=== PATIENT | female | born 1945 | race Caucasian/White ===

== ENCOUNTER 2016-08-26 06:18 | Inpatient (IN) | payer MEDICARE, OTHER ==
[~2016-08-26] VITALS: Ht 188 cm; Wt 65.0 kg
[~2016-08-26 06:18] MED LIST: ATOR20TA42 PO; PAXI10TA PO; SYNT88TA PO
[2016-08-26 06:20] VITALS: BP 144/78; PULSE 84; RESP 16; TEMP 98.2; O2SAT 100
--- NOTE | 2016-08-26 06:30 | PD ---
HPI Chief Complaint: Injury Time Seen by Provider: 06:30 Travel History International Travel<30 days: No Contact w/Intl Traveler<30days: No Traveled to known affect area: No History of Present Illness HPI 70-year-old female fell midnight after tripping over her dog. She injured her right elbow and right leg. Also when she fell she hit the right side of her cheek. She was applying ice to the right elbow area but when the swelling continued and the pain worse and she decided come to the emergency room. Patient is not on any blood thinners. She takes prednisone daily for her rheumatoid arthritis. No history of loss of consciousness, vomiting or altered mental status. [facility] Past Medical History Narrative Medical List of her past medical, surgical, social and family history is reviewed from the nursing note. Autoimmune Disease: No Heart Rhythm Problems: Yes (HEART MURMUR) Cancer: No Cardiac Catheterization: No Cardiovascular Problems: Yes High Cholesterol: Yes Congestive Heart Failure: No Diabetes: No Diminished Hearing: No Endocrine: No Genitourinary: No Immune Disorder: No Musculoskeletal: No Neurologic: No Psychiatric: No Reproductive: No Respiratory: No Past Surgical History Coronary Artery Bypass Graft: No Gynecologic Surgery: Yes (HYSTERECTOMY 1983) Hysterectomy: Yes Social History Alcohol Use: Yes (3-4 GLASSES OF WINE DAILY) Tobacco Use: No (QUIT 2010) Substance Use: No Allergies-Medications (Allergen,Severity, Reaction): Coded Allergies: No Known Allergies (Unverified , 01/28/16) Comments No known drug allergies. Reported Meds & Prescriptions Reported Meds & Active Scripts Active Reported Spironolactone 100 Mg Tab 100 Mg PO DAILY Zorvolex (Diclofenac) 35 Mg Cap 75 Mg PO BID Paxil (Paroxetine HCl) 10 Mg Tab 10 Mg PO DAILY Synthroid (Levothyroxine Sodium) 88 Mcg Tab 88 Mcg PO DAILY Atorvastatin (Atorvastatin Calcium) 10 Mg Tab Unknown Dose PO HS Prednisone 1 Mg Tab Unknown Dose PO DAILY Narrative Medication List of her home medications reviewed from the nursing note. Review of Systems Except as stated in HPI: all other systems reviewed are Neg Physical Exam Narrative GENERAL: Awake, alert, moderate distress SKIN: Focused skin assessment warm/dry. Right elbow is swollen with 3 deep abrasions and skin tear. No active bleeding. Right leg has multiple deep abrasions on the anterior aspect of the knee as well as leg. HEAD: Atraumatic. Normocephalic. Right cheek/maxillary prominence is swollen with bruising. No crepitus. EYES: Pupils equal and round. No scleral icterus. No injection or drainage. ENT: No nasal bleeding or discharge. Mucous membranes pink and moist. Patient is able to open her mouth wide and close shut without any difficulty. Good teeth alignment. No intraoral injuries. NECK: Trachea midline. No JVD. CARDIOVASCULAR: Regular rate and rhythm. No murmur appreciated. RESPIRATORY: No accessory muscle use. Clear to auscultation. Breath sounds equal bilaterally. GASTROINTESTINAL: Abdomen soft, non-tender, nondistended. Hepatic and splenic margins not palpable. MUSCULOSKELETAL: Right elbow is significantly swollen with slightly decreased range of motion. No clubbing. No cyanosis. No edema. NEUROLOGICAL: Awake and alert. No obvious cranial nerve deficits. Motor grossly within normal limits. Normal speech. PSYCHIATRIC: Appropriate mood and affect; insight and judgment normal. Data Data Last Documented VS Vital Signs Date Time Temp Pulse Resp B/P Pulse Ox O2 Delivery O2 Flow Rate FiO2 08/26/16 07:45 18 Orders Elbow, Complete (4 Vws) (08/26/16 ) Acetamin-Hydrocod 325-5 Mg ([place] 5-325 (08/26/16 06:45) Splint Or Brace Apply/Monitor (08/26/16 07:46) Fiberglass Splint Elbow Adult (08/26/16 ) Sling Cradle Arm (08/26/16 ) Admit Order (Ed Use Only) (08/26/16 09:09) Consult Orthopedic (08/26/16 ) [facility] Medical Decision Making Medical Screen Exam Complete: Yes Emergency Medical Condition: Yes Medical Record Reviewed: Yes Differential Diagnosis Distal humerus fracture, proximal radius ulna fracture, hematoma, contusion Narrative Course 6:56 AM awaiting for the x-ray to be done and resulted. Patient was given hydrocodone for her pain. Her last tetanus shot was in 2015. Case will be signed over to the oncoming ER physician. Procedures EKG Prior to Arrival: No Scripts Hydrocodone-Acetaminophen ([place])7.5-325 mg Tab1 Tab PO Q4H PRN (PAIN) #60 TAB Ref 0 Prov:Jarett Jensen 08/27/16 Alexandra Chan MD Aug 26, 2016 06:30
[2016-08-26] MEDS ORDERED: ATOR10TA15 PO (06:35)
[2016-08-26] MEDS ORDERED: PRED1 PO (06:35)
[2016-08-26] MEDS ORDERED: PAXI10TA2 PO (06:42)
[2016-08-26] MEDS ORDERED: SYNT88TA PO (06:42)
[2016-08-26] MEDS ORDERED: ACETAMINOPHEN/HYDROcodone 325 MG/5 MG TAB PO ONE (06:45)
[2016-08-26] MEDS ORDERED: ACET-703 PO (06:45)
[2016-08-26] MEDS ORDERED: DICL1CAP4 PO (06:45)
[2016-08-26] MEDS ORDERED: SPIR100T PO (06:46)
--- NOTE | 2016-08-26 07:12 | RADRPT ---
EXAM DATE/TIME: 08/26/2016 07:02 [facility] COMPARISON: No previous studies available for comparison. INDICATIONS : Trauma. Pt fell over a dog gate at her house in the middle of the night. MEDICAL HISTORY : None. SURGICAL HISTORY : None. ENCOUNTER: Initial ACUITY: 1 day PAIN SCORE: 3/10 LOCATION: Right elbow FINDINGS: 5 views of the right elbow demonstrate a fracture through the olecranon with approximately 18 mm of d isplacement of the proximal olecranon fragment. There is adjacent soft tissue swelling and a joint ef fusion is present. Proximal radius and distal humerus appear intact. No dislocation is visualized. CONCLUSION: There is a displaced fracture of the olecranon with associated soft tissue swelling and joint effusio n. Hemanth Rushing MD on August 26, 2016 at 7:09 Board Certified Radiologist. This report was verified electronically.
--- NOTE | 2016-08-26 09:15 | PD ---
Data Data Last Documented VS Vital Signs Date Time Temp Pulse Resp B/P Pulse Ox O2 Delivery O2 Flow Rate FiO2 08/26/16 06:20 98.2 84 16 144/78 100 Orders Elbow, Complete (4 Vws) (08/26/16 ) Acetamin-Hydrocod 325-5 Mg ([place] 5-325 (08/26/16 06:45) Splint Or Brace Apply/Monitor (08/26/16 07:46) Fiberglass Splint Elbow Adult (08/26/16 ) Sling Cradle Arm (08/26/16 ) Admit Order (Ed Use Only) (08/26/16 09:09) Consult Orthopedic (08/26/16 ) MDM Supervised Visit with MONICA: No Narrative Course I took over care of this patient from Dr. Chan. The patient had a mechanical fall overnight. She has evidence of a displaced olecranon fracture on x-ray. She does have some abrasions on the surface of the elbow but nothing deep and there is no evidence of open fracture. I spoke to Dr. Rizvi who will likely do surgery tomorrow and set the patient can eat today. She will be admitted to the medicine service at his request. Diagnosis Primary Impression: Closed olecranon fracture Qualified Code: S52.021A - Closed olecranon fracture, right, initial encounter Admitting Information Admitting Physician Requests: it Jenifer Gomez MD Aug 26, 2016 09:15
--- NOTE | 2016-08-26 09:22 | HHI.HP ---
[facility] Service Family Medicine Primary Care Physician Non-Staff Admission Diagnosis olecranon fracture Diagnoses: International Travel<30 Days: No Contact w/Intl Traveler<30days: No Known Affected Area: No History of Present Illness This is a 70-year-old female with past medical history significant for rheumatoid arthritis, dyslipidemia, and hypothyroidism. She is presenting to the [facility] for a fall that occurred last night. She woke up to go use the restroom during the night, and she had recently moved the family's dog cage into the bedroom and she forgot, she tripped over the dog cage and fell to the floor. She landed on her right elbow right cheek and legs. After the fall she had pain to the elbow and some scrapes on her legs. She denied losing consciousness, she denied feeling dizzy or lightheaded before or after the fall. This morning when the pain in her elbow continued to be severe she came to the ED for further evaluation. She was found to have a displaced fracture of the olecranon of the right elbow. Time of evaluation she is no longer hurting other than the elbow was sore, but pain was tolerable. Review of Systems Constitutional: DENIES: Fatigue, Fever, Weight gain, Chills, Change in appetite Endocrine: DENIES: Polydipsia, Polyuria Eyes: DENIES: Blurred vision, Eye pain, Double Vision Ears, nose, mouth, throat: DENIES: Tinnitus, Hearing loss, Vertigo, Hoarseness , Running Nose, Sinus Pain Respiratory: DENIES: Apneas, Cough, Wheezing, Sputum production, Shortness of breath Cardiovascular: DENIES: Chest pain, Dyspnea on Exertion, Lower Extremity Edema Gastrointestinal: DENIES: Abdominal pain, Black stools, Constipation, Diarrhea , Nausea, Vomiting Genitourinary: DENIES: Urgency, Hematuria, Dysuria Musculoskeletal: COMPLAINS OF: Joint pain (right elbow), Joint Swelling (right elbow), DENIES: Muscle aches, Stiffness, Back pain, Neck pain Integumentary: DENIES: Abnormal pigmentation, Rash Hematologic/lymphatic: COMPLAINS OF: Bruising (bruising to both lower extremities with some abrasions) Neurologic: DENIES: Abnormal gait, Headache, Seizures, Speech Problems, Tremor , Poor Balance Psychiatric: DENIES: Anxiety, Depression Past Family Social History Past Medical History Rheumatoid Arthritis Hypothyroidism Dyslipidemia Depression Past Surgical History Hysterectomy Reported Medications Reported Meds & Active Scripts Active Reported Spironolactone 100 Mg Tab 100 Mg PO DAILY Tylenol Extra Strength (Acetaminophen) 500 Mg Tab 1,000 Mg PO ONCE Zorvolex (Diclofenac) 35 Mg Cap 75 Mg PO BID Paxil (Paroxetine HCl) 10 Mg Tab 10 Mg PO DAILY Synthroid (Levothyroxine Sodium) 88 Mcg Tab 88 Mcg PO DAILY Atorvastatin (Atorvastatin Calcium) 10 Mg Tab Unknown Dose PO HS Prednisone 1 Mg Tab Unknown Dose PO DAILY Allergies: Coded Allergies: No Known Allergies (Unverified , 01/28/16) Family History Uterine cancer Brother unknown cause of Social History Live in [place] in a house with Have a Pet dog Former smoker quit 5 years ago when smoking was doing at least a pack a day 2 shots a day Denies illicit drugs Physical Exam Vital Signs Vital Signs Date Time Temp Pulse Resp B/P Pulse Ox O2 Delivery O2 Flow Rate FiO2 08/26/16 06:20 98.2 84 16 144/78 100 Physical Exam GENERAL: Awake, alert, moderate distress SKIN: Focused skin assessment warm/dry. Right elbow and left splint and sling unable to visualize. No active bleeding. Right leg has multiple deep abrasions on the anterior aspect of the knee as well as leg. HEAD: Atraumatic. Normocephalic. Right cheek/maxillary prominence is swollen with bruising. No crepitus. EYES: Pupils equal and round. No scleral icterus. No injection or drainage. ENT: No nasal bleeding or discharge. Mucous membranes pink and moist. Patient is able to open her mouth wide and close shut without any difficulty. Good teeth alignment. No intraoral injuries. NECK: Trachea midline. No JVD. CARDIOVASCULAR: Regular rate and rhythm. No murmur appreciated. RESPIRATORY: No accessory muscle use. Clear to auscultation. Breath sounds equal bilaterally. GASTROINTESTINAL: Abdomen soft, non-tender, nondistended. Hepatic and splenic margins not palpable. MUSCULOSKELETAL: Right elbow is significantly swollen with slightly decreased range of motion. No clubbing. No cyanosis. No edema. NEUROLOGICAL: Awake and alert. No obvious cranial nerve deficits. Motor grossly within normal limits. Normal speech. PSYCHIATRIC: Appropriate mood and affect; insight and judgment normal. Imaging Last Impressions Elbow X-Ray 08/26/16 0000 Signed Impressions: Service Date/Time: Friday, August 26, 2016 07:02 - CONCLUSION: There is a displaced fracture of the olecranon with associated soft tissue swelling and joint effusion. Hemanth Rushing MD Assessment and Plan Assessment and Plan This is a 70-year-old female with past medical history significant for rheumatoid arthritis, dyslipidemia, and hypothyroidism. Being admitted for displaced olecranon fracture on the right elbow. Code Status Full code Discussed Condition With [facility]: Dr. Darnell Problem List: (1) Closed olecranon fracture Status: Acute Plan: Displaced lacunar fracture seen on x-ray. * Admitted to inpatient * Consult orthopedic surgery, Dr. Ibarra, plan for surgery tomorrow * [place] 5/325mg when necessary every 4 hours pain 1-5 * [place] 10/325 mg when necessary every 4 hours pain 6-10 * Morphine 1 mg IV every 3 hours breakthrough pain * Zofran when necessary nausea (2) Alcohol abuse Status: Acute Plan: History of alcohol use. Denies any alcohol withdrawal when she does not drink. * CIWA protocol in place * Rally pack (3) Nutrition, metabolism, and development symptoms Status: Acute Plan: Regular diet, nothing by mouth at midnight Out of bed ad jennifer. Vitals every 4 Monitor electrolytes and replace accordingly DVT prophylaxis: SCDs, no pharmacological prophylaxis due to surgery tomorrow Disposition: To be determined after surgery CODE STATUS: Full code Physician Certification 2 Midnight Certification Type: Admission for Inpatient Services Order for Inpatient Services The services are ordered in accordance with Medicare regulations or non- Medicare payer requirements, as applicable. In the case of services not specified as inpatient-only, they are appropriately provided as inpatient services in accordance with the 2-midnight benchmark. Estimated LOS (days): 3 days is the estimated time the patient will need to remain in the hospital, assuming treatment plan goals are met and no additional complications. Post-Hospital Plan: Home Problem Qualifiers (1) Closed olecranon fracture: Qualified Code: S52.021A - Closed olecranon fracture, right, initial encounter Ulysses Sarmiento MD R2 Aug 26, 2016 09:22
[2016-08-26] MEDS ORDERED: FLUMAZENIL 0.5 MG/5 ML VIAL IV PUSH PRN (09:30)
[2016-08-26] MEDS ORDERED: ACETAMINOPHEN/HYDROcodone 325 MG/10 MG TAB PO PRN (09:30)
[2016-08-26] MEDS ORDERED: SENNOSIDES 8.6 MG TAB PO PRN (09:30)
[2016-08-26] MEDS ORDERED: SODIUM CHLORIDE 0.9% FLUSH 10 ML FLUSH IV FLUSH PRN (09:30)
[2016-08-26] MEDS ORDERED: ACETAMINOPHEN/HYDROcodone 325 MG/5 MG TAB PO PRN (09:30)
[2016-08-26] MEDS ORDERED: MORPHINE SULFATE 4 MG/ML INJ IV PRN (09:30)
[2016-08-26] MEDS ORDERED: LORazepam 2 MG/ML VIAL IV PUSH PRN ×4 (09:30)
[2016-08-26] MEDS ORDERED: ACETAMINOPHEN 325 MG TAB PO PRN (09:30)
[2016-08-26] MEDS ORDERED: ONDANSETRON HCL 4 MG/2 ML VIAL IVP PRN (09:30)
[2016-08-26] MEDS ORDERED: LORazepam 2 MG TAB PO PRN (09:30)
[2016-08-26] MEDS ORDERED: LORazepam 1 MG TAB PO PRN (09:30)
[2016-08-26] MEDS ORDERED: NALOXONE HCL 0.4 MG/ML AMP IV PRN ×2 (09:30)
[2016-08-26] MEDS ORDERED: ZOLPIDEM TARTRATE 5 MG TAB PO PRN (09:30)
[2016-08-26] MEDS: FOLIC ACID 1 MG TAB PO SCH (10:43)
[2016-08-26] MEDS: MULTIVITAMIN TAB PO SCH (10:43)
[2016-08-26] MEDS: THIAMINE HCL 100 MG TAB PO SCH (10:43)
[2016-08-26 11:05] VITALS: BP 135/75; PULSE 85; RESP 16; O2SAT 99
[2016-08-26] MEDS: DICLOFENAC SODIUM 75 MG DELAYED RELEASE TAB PO SCH (21:00)
[2016-08-26] MEDS: SODIUM CHLORIDE 0.9% FLUSH 10 ML FLUSH IV FLUSH SCH (21:00)
[2016-08-26 21:30] VITALS: BP 125/65; PULSE 64; RESP 16; TEMP 97.9; O2SAT 97
[2016-08-27 00:30] VITALS: BP 120/64; PULSE 63; RESP 17; TEMP 97; O2SAT 98
[2016-08-27 04:00] VITALS: BP 130/65; PULSE 63; RESP 17; TEMP 97.1; O2SAT 99
[2016-08-27 07:11] LABS: AUTOMATED NEUTROPHIL # 3.4 TH/MM3 (1.8-7.7); BASOPHIL % 0.6 % (0.0-2.0); EOSINOPHIL # 0.1 TH/MM3 (0-0.4); HEMATOCRIT 36.9 % (35.0-46.0); HEMO FLAGS DIFF FINAL; LYMPH % 17.7 % (9.0-44.0); LYMPHOCYTE # 0.9 TH/MM3 (1.0-4.8); MEAN CELL VOLUME 89.4 FL (80.0-100.0); MEAN CORPUSCULAR HEMOGLOBIN 30.6 PG (27.0-34.0); MEAN CORPUSCULAR HGB CONC 34.2 % (32.0-36.0); MONO % 8.4 % (0.0-8.0); NEUT % 70.3 % (16.0-70.0); PLATELET COUNT 406 TH/MM3 (150-450); RED BLOOD COUNT 4.13 MIL/MM3 (4.00-5.30); RED CELL DISTRIBUTION WIDTH 13.3 % (11.6-17.2); WHITE BLOOD COUNT 4.8 TH/MM3 (4.0-11.0)
--- NOTE | 2016-08-27 07:18 | PD.ORT.PN ---
Subjective Subjective Remarks s/p fall right elbow pain. no other complaints Objective Vitals Vital Signs Date Time Temp Pulse Resp B/P Pulse Ox O2 Delivery O2 Flow Rate FiO2 08/27/16 04:00 97.1 63 17 130/65 99 08/27/16 00:30 97.0 63 17 120/64 98 08/26/16 21:30 97.9 64 16 125/65 97 08/26/16 18:57 99 08/26/16 11:05 85 16 135/75 99 Room Air 08/26/16 07:45 18 I/O 08/26/16 08/26/16 08/26/16 08/27/16 08/27/16 08/27/16 07:00 15:00 23:00 07:00 15:00 23:00 Intake Total 600 ml 200 ml Balance 600 ml 200 ml Intake Oral 600 ml 200 ml # Voids 1 2 # Bowel Movements 0 0 Result Diagram: 08/27/16 0643 Objective Remarks RUE: + long arm splint. nvi Assessment & Plan Assessment and Plan 1) Right Olecranon Fx -npo -consents -surgery today Jarett Jensen Aug 27, 2016 07:18
[2016-08-27] MEDS ORDERED: HYDR-3288 PO (07:19)
[2016-08-27 07:44] LABS: BICARBONATE 27.6 MEQ/L (21.0-32.0); POTASSIUM 4.3 MEQ/L (3.5-5.1)
[2016-08-27 08:00] VITALS: BP 137/74; PULSE 60; RESP 16; TEMP 96.9; O2SAT 99
[2016-08-27] MEDS: SODIUM CHLORIDE 0.9% FLUSH 10 ML FLUSH IV FLUSH SCH (08:19)
[2016-08-27] MEDS: FOLIC ACID 1 MG TAB PO SCH (08:19)
[2016-08-27] MEDS: DICLOFENAC SODIUM 75 MG DELAYED RELEASE TAB PO SCH (08:20)
[2016-08-27] MEDS: MULTIVITAMIN TAB PO SCH (08:20)
[2016-08-27] MEDS: THIAMINE HCL 100 MG TAB PO SCH (08:20)
[2016-08-27] MEDS ORDERED: LACTATED RINGER'S 1000 ML IV PRN (08:30)
[2016-08-27] MEDS ORDERED: INSULIN HUMAN REGULAR 1,000 UNITS/10 ML VIAL SQ PRN (08:30)
[2016-08-27] MEDS ORDERED: CHLORHEXIDINE GLUCONATE 2 % 1 PACK (2 CLOTHS) TOPICAL PRN (08:30)
[2016-08-27] MEDS ORDERED: POVIDONE IODINE 5% (ANTISEPSIS KIT) 4 APPLICATIONS EACH NARE PRN (08:30)
[2016-08-27] MEDS ORDERED: GENTAMICIN SULFATE 80 MG/2 ML VIAL ONE (08:33)
[2016-08-27] MEDS ORDERED: predniSONE 1 MG TAB PO SCH (09:00)
[2016-08-27] MEDS ORDERED: SPIRONOLACTONE 100 MG TAB PO SCH (09:00)
[2016-08-27] MEDS ORDERED: PARoxetine HCL 20 MG TAB PO SCH (09:00)
[2016-08-27] MEDS ORDERED: ATORVASTATIN 10 MG TAB PO SCH (09:00)
[2016-08-27] MEDS ORDERED: LEVOTHYROXINE SODIUM 88 MCG TAB PO SCH (09:00)
--- NOTE | 2016-08-27 09:35 | HHI.HP ---
[facility] Service Family Medicine Primary Care Physician Non-Staff Admission Diagnosis olecranon fracture Diagnoses: (1) Closed olecranon fracture Diagnosis: Principal (2) Alcohol abuse Diagnosis: Principal (3) Nutrition, metabolism, and development symptoms Diagnosis: [place] International Travel<30 Days: No Contact w/Intl Traveler<30days: No Known Affected Area: No History of Present Illness Ms Bullard is a 70-year-old female with past medical history significant for rheumatoid arthritis, dyslipidemia, and hypothyroidism. She presented to the [facility] ED for a fall that occurred the night before admission. She woke up to go use the restroom during the night, and she had recently moved the family's dog cage into the bedroom and she forgot, she tripped over the dog cage and fell to the floor. She landed on her right elbow , right cheek and legs. After the fall she had pain to the elbow and some scrapes on her legs. She denied losing consciousness, she denied feeling dizzy or lightheaded before or after the fall. The morning of admission when the pain in her elbow continued to be severe she came to the ED for further evaluation. She was found to have a displaced fracture of the olecranon of the right elbow. At the time of evaluation she is no longer hurting other than the elbow was sore, but pain was tolerable. This am she is due to have surgical repair and should hopefully be able to go home after that. She lives with her and he can help her at home. Review of Systems Other Constitutional: DENIES: Fatigue, Fever, Weight gain, Chills, Change in appetite Endocrine: DENIES: Polydipsia, Polyuria Eyes: DENIES: Blurred vision, Eye pain, Double Vision Ears, nose, mouth, throat: DENIES: Tinnitus, Hearing loss, Vertigo, Hoarseness , Running Nose, Sinus Pain Respiratory: DENIES: Apneas, Cough, Wheezing, Sputum production, Shortness of breath Cardiovascular: DENIES: Chest pain, Dyspnea on Exertion, Lower Extremity Edema Gastrointestinal: DENIES: Abdominal pain, Black stools, Constipation, Diarrhea , Nausea, Vomiting Genitourinary: DENIES: Urgency, Hematuria, Dysuria Musculoskeletal: COMPLAINS OF: Joint pain (right elbow), Joint Swelling (right elbow), DENIES: Muscle aches, Stiffness, Back pain, Neck pain Integumentary: DENIES: Abnormal pigmentation, Rash Hematologic/lymphatic: COMPLAINS OF: Bruising (bruising to both lower extremities with some abrasions) Neurologic: DENIES: Abnormal gait, Headache, Seizures, Speech Problems, Tremor , Poor Balance Psychiatric: DENIES: Anxiety, Depression Past Family Social History Past Medical History Rheumatoid Arthritis Hypothyroidism Dyslipidemia Depression Past Surgical History Hysterectomy Allergies: Coded Allergies: No Known Allergies (Unverified , 01/28/16) Family History Uterine cancer Brother unknown cause of Social History Live in [place] in a house with Have a Pet dog Former smoker quit 5 years ago when smoking was doing at least a pack a day 2 shots a day Denies illicit drugs Physical Exam Vital Signs Vital Signs Date Time Temp Pulse Resp B/P Pulse Ox O2 Delivery O2 Flow Rate FiO2 08/27/16 08:00 96.9 60 16 137/74 99 08/27/16 04:00 97.1 63 17 130/65 99 08/27/16 00:30 97.0 63 17 120/64 98 08/26/16 21:30 97.9 64 16 125/65 97 08/26/16 18:57 99 08/26/16 11:05 85 16 135/75 99 Room Air Physical Exam GENERAL: Awake, alert, moderate distress SKIN: Focused skin assessment warm/dry. Right elbow and left splint and sling unable to visualize. No active bleeding. Right leg has multiple deep abrasions on the anterior aspect of the knee as well as leg. HEAD: Atraumatic. Normocephalic. Right cheek/maxillary prominence is swollen with bruising. No crepitus. EYES: Pupils equal and round. No scleral icterus. No injection or drainage. ENT: No nasal bleeding or discharge. Mucous membranes pink and moist. Patient is able to open her mouth wide and close shut without any difficulty. Good teeth alignment. No intraoral injuries. NECK: Trachea midline. No JVD. CARDIOVASCULAR: Regular rate and rhythm. No murmur appreciated. RESPIRATORY: No accessory muscle use. Clear to auscultation. Breath sounds equal bilaterally. GASTROINTESTINAL: Abdomen soft, non-tender, nondistended. Hepatic and splenic margins not palpable. MUSCULOSKELETAL: Right elbow is significantly swollen with slightly decreased range of motion. No clubbing. No cyanosis. No edema. NEUROLOGICAL: Awake and alert. No obvious cranial nerve deficits. Motor grossly within normal limits. Normal speech. PSYCHIATRIC: Appropriate mood and affect; insight and judgment normal. Laboratory Laboratory Tests Test 08/27/16 06:43 White Blood Count 4.8 Red Blood Count 4.13 Hemoglobin 12.6 Hematocrit 36.9 Mean Corpuscular Volume 89.4 Mean Corpuscular Hemoglobin 30.6 Mean Corpuscular Hemoglobin 34.2 Concent Red Cell Distribution Width 13.3 Platelet Count 406 Mean Platelet Volume 6.6 Neutrophils (%) (Auto) 70.3 Lymphocytes (%) (Auto) 17.7 Monocytes (%) (Auto) 8.4 Eosinophils (%) (Auto) 3.0 Basophils (%) (Auto) 0.6 Neutrophils # (Auto) 3.4 Lymphocytes # (Auto) 0.9 Monocytes # (Auto) 0.4 Eosinophils # (Auto) 0.1 Basophils # (Auto) 0.0 CBC Comment DIFF FINAL Differential Comment Sodium Level 130 Potassium Level 4.3 Chloride Level 95 Carbon Dioxide Level 27.6 Anion Gap 7 Blood Urea Nitrogen 9 Creatinine 0.68 Estimat Glomerular Filtration 86 Rate Random Glucose 95 Calcium Level 8.7 Result Diagram: 08/27/16 0643 08/27/16 0643 Imaging Last Impressions Elbow X-Ray 08/26/16 0000 Signed Impressions: Service Date/Time: Friday, August 26, 2016 07:02 - CONCLUSION: There is a displaced fracture of the olecranon with associated soft tissue swelling and joint effusion. Hemanth Rushing MD Assessment and Plan Assessment and Plan This is a 70-year-old female with past medical history significant for rheumatoid arthritis, dyslipidemia, and hypothyroidism. admitted for displaced olecranon fracture on the right elbow. Should have surgery today and be able to go home Problem List: (1) Closed olecranon fracture Status: Acute Plan: Displaced lacunar fracture seen on x-ray. * Admitted to inpatient * Consulted orthopedic surgery, Dr. Ibarra, plan for surgery tomorrow * [place] 5/325mg when necessary every 4 hours pain 1-5 * [place] 10/325 mg when necessary every 4 hours pain 6-10 * Morphine 1 mg IV every 3 hours breakthrough pain * Zofran when necessary nausea (2) Alcohol abuse Status: Acute Plan: History of alcohol use. Denies any alcohol withdrawal when she does not drink. * CIWA protocol in place * Rally pack (3) Nutrition, metabolism, and development symptoms Status: Acute Plan: Regular diet, nothing by mouth at midnight Out of bed ad jennifer. Vitals every 4 Monitor electrolytes and replace accordingly DVT prophylaxis: SCDs, no pharmacological prophylaxis due to surgery tomorrow Disposition: home CODE STATUS: Full code Physician Certification 2 Midnight Certification Type: Admission for Inpatient Services Order for Inpatient Services The services are ordered in accordance with Medicare regulations or non- Medicare payer requirements, as applicable. In the case of services not specified as inpatient-only, they are appropriately provided as inpatient services in accordance with the 2-midnight benchmark. Estimated LOS (days): 2 2 days is the estimated time the patient will need to remain in the hospital, assuming treatment plan goals are met and no additional complications. Post-Hospital Plan: Home Notes: because pt has a fracture, she was admitted Problem Qualifiers (1) Closed olecranon fracture: Qualified Code: S52.021A - Closed olecranon fracture, right, initial encounter Catie Darnell MD Aug 27, 2016 09:34
[2016-08-27] MEDS ORDERED: ceFAZolin INJ 1,000 MG VIAL ONE (09:42)
[2016-08-27] MEDS ORDERED: VANCOMYCIN HCL 1000 MG VIAL ONE (09:42)
[2016-08-27] MEDS ORDERED: SODIUM CHLOR 0.9% 250 ML INJ 250 ML ONE (09:43)
[2016-08-27] MEDS ORDERED: MIDAZOLAM HCL 2 MG/2 ML VIAL ONE (09:55)
[2016-08-27] MEDS ORDERED: DEXAMETHASONE SOD PHOS 4 MG/ML VIAL ONE (09:55)
[2016-08-27] MEDS ORDERED: PHENYLEPH/NS 1000 MCG/10 ML SYR IV ONE (11:04)
[2016-08-27] MEDS ORDERED: LACTATED RINGER'S 1000 ML INJ 1,000 ML IV ONE (11:04)
[2016-08-27] MEDS ORDERED: ONDANSETRON HCL 4 MG/2 ML VIAL IV PUSH ONE (11:04)
[2016-08-27] MEDS ORDERED: NEOSTIGMINE 3 MG/3 ML SYR IV ONE (11:04)
[2016-08-27] MEDS ORDERED: PROPOFOL 200 MG/20 ML AMP IV ONE (11:04)
--- NOTE | 2016-08-27 11:10 | PD.OP ---
cc: Blayne Corbett MD Operative Report Date of Surgery: Aug 27, 2016 Preoperative Diagnosis: Displaced right olecranon fracture Postoperative Diagnosis: Same Procedure: Open reduction internal fixation right olecranon Anesthesia: Gen. Surgeon: Blayne Corbett Plug Saw Operator(s): MANDO Jose PA-C The surgical procedure was assisted by my physician diversional therapist's assistant. My P.A. presence was necessary throughout this case for the manipulation and positioning of the surgical extremity. My P.A. was assisting me throughout the duration of this procedure. The skill set of a physician diversional therapist's assistant was medically necessary to complete this procedure. During the surgical case the regional vice president surgical sales was working at the back table and the physician diversional therapist's assistant was directly assisting me. Operation and Findings: Patient was seen and evaluated preoperatively. Patient was found to have a displaced intra-articular olecranon fracture. The risk and benefits of the surgery were discussed in depth and informed consent was obtained. Risk of surgery include bleeding, infection, painful hardware, wound, case, elbow stiffness, loss of motion, elbow arthritis, injuries to arteries nerves or blood vessels, weakness and numbness of hand, as well as medical complications associated with general anesthesia. All questions were answered. Patient was brought to operating room. IV sedation and anesthesia were administered. Patient was placed into a lateral decubitus position. Timeout procedure was performed. IV antibiotics were administered prior to incision. The operative arm was prepped with alcohol followed by Hibiclens and draped in usual sterile fashion. Procedure began with a 4 inch incision over the olecranon. Subcutaneous tissue dissected with Bovie. Fracture site was visualized. Fascia was elevated around the fracture site. There was mild comminution of the fracture site. Fracture fragments were gently manipulated. A fracture tenaculum was used to aid in reduction. Multiple K wires result provisional fixation. A Synthes proximal plate was selected. Plate was provisionally held with K wires 3.5 cortical screws were used to compress plate to bone. Multiple cortical screws were placed in the ulna shaft. Multiple locking screws were placed in the proximal ulna. All screws were predrilled and premeasured for appropriate length. K wires were removed. Final fluoroscopy revealed excellent of fractures well-placed hardware. Articular surface appeared to be in near anatomic alignment. Wound was now thoroughly irrigated. A #5 FiberWire suture was now weaved into the distal triceps tendon. The suture was now passed through a hole in the the plate. The suture was tied down to the plate to give the fracture additional stability. Incision was now closed with #1 Vicryl, 3-0 Vicryl, and elvin. Sterile dressings were applied. Patient's placed a well molded well-padded splint. Patient was transferred to recovery in stable condition. Blayne Corbett MD Aug 27, 2016 11:10
[2016-08-27] MEDS ORDERED: Post-op Orders (for Pharmacy) MISC XX ONE (11:15)
[2016-08-27] MEDS ORDERED: MORPHINE SULFATE 4 MG/ML INJ IV PUSH PRN (11:15)
[2016-08-27] MEDS ORDERED: ACETAMINOPHEN/HYDROcodone 325 MG/7.5 MG TAB PO PRN (11:15)
--- NOTE | 2016-08-27 11:16 | HHI.DCPOC ---
Discharge Care Plan Diagnosis: (1) Closed olecranon fracture Goals to Promote Your Health * To prevent worsening of your condition and complications * To maintain your health at the optimal level Directions to Meet Your Goals Take your medications as prescribed Follow your dietary instruction Follow activity as directed Keep your appointments as scheduled Take your immunizations and boosters as scheduled If your symptoms worsen call your PCP, if no PCP go to Urgent Care Center or Emergency Room Smoking is Dangerous to Your Health. Avoid second hand smoke Call the 24-hour hour crisis hotline for domestic abuse at Ulysses Sarmiento MD R2 Aug 27, 2016 11:16
[2016-08-27] MEDS ORDERED: DO NOT ADM ANY ANTICOAGULANT DRUGS PRN (11:30)
[2016-08-27] MEDS ORDERED: *MEPERIDINE 25 MG INJ VIAL PERIprocedural Use ONLY ONE (11:34)
[2016-08-27] MEDS ORDERED: *morphine SULFATE 8 MG/ML PERIprocedure ONLY ONE ×2 (11:40→11:59)
[2016-08-27 12:15] VITALS: BP 157/73; PULSE 72; RESP 20; TEMP 97
[2016-08-27] MEDS ORDERED: fentaNYL CITRATE 250 MCG/5 ML AMP ONE (12:23)
--- NOTE | 2016-08-27 13:45 | MB ---
cc: KAM ROSENTHAL DATE OF CONSULTATION 08/27/2016 REASON FOR CONSULTATION Right olecranon displaced fracture. CONSULTING PHYSICIAN Dr. Darnell GRACE Miller is a 70-year female who has a history of rheumatoid arthritis, high cholesterol, hypothyroidism. She states that she fell last night. She had to go to the bathroom when she tripped over the dog crate. She fell. She hit her right elbow. She had immediate pain. She also had some skin abrasions. She presented to the emergency room where x-rays revealed a displaced right olecranon fracture. She is currently awake and alert. Her only complaint is right elbow pain. Pain is worse with movement and is improved with rest. She is currently awake and alert on the fifth floor. PAST MEDICAL HISTORY ILLNESSES 1. Hypothyroidism 2. Rheumatoid arthritis 3. High cholesterol 4. Depression SURGERIES Hysterectomy ALLERGIES None FAMILY HISTORY Positive for uterine cancer. SOCIAL HISTORY The patient lives in [place] with her . She quit smoking five years ago. She does drink alcohol most days. REVIEW OF SYSTEMS The patient denies headache, visual changes, neck pain, chest pain, shortness of breath, nausea, vomiting, recent weight loss, or numbness or tingling of extremities. She complains of right elbow pain. Pain is worse with movement. PHYSICAL EXAMINATION The patient is a thin 70-year female in no acute distress. She is awake and alert. She is alert and x3. VITAL SIGNS: Temperature 96.9, pulse 60, respirations 16, blood pressure 137/74, O2 sat 99% on room air. HEAD: The patient is normocephalic. EYES: Pupils are equal. NECK: Soft and nontender. Trachea is midline. ABDOMEN: Soft, nontender, nondistended. EXTREMITIES: Examination of the right arm reveals no tenderness around her shoulder, wrist or fingers. She has intact sensation in all fingers. She has some superficial skin abrasions around her elbow. She has pain with any elbow motion. She has mild swelling around the elbow, but forearm compartments are soft. Examination of the left arm reveals no pain with shoulder, elbow or wrist motion. Skin is intact. Radial pulses palpable. Sensation is intact in all fingers. Examination of bilateral lower extremities reveals no significant pain with hip, knee or ankle motion. Skin is intact in both feet. Dorsalis pedis pulses are palpable. X-RAYS X-rays of right elbow reviewed. X-rays reveal a displaced right olecranon fracture. IMPRESSION Displaced right olecranon fracture. PLAN Treatment options were discussed with the patient. At this point, I would recommend open reduction, internal fixation of right elbow olecranon fracture. The risks of surgery include bleeding, infection, injury to arteries, nerves and blood vessels, ulnar nerve injury, elbow stiffness, loss of motion, painful hardware, wound complications, wound infection, need for hardware removal, as well as medical complications associated with anesthesia. All questions were answered. I will plan on surgery today. A mid-level provider in my office, nurse practitioner or PA, may see this patient on a follow-up basis and continue to implement the objective of this plan including: Starting or adjusting medications, injections of muscle, tendon, bursa or joints, cast application, orthotic or brace application, physical therapy, further radiographic studies including x-ray, MRI, CT, ultrasounds or bone scan, vascular studies, neurologic studies, or other specialist consultations, and proceeding with surgical management as appropriate. MD NANI Torres/JUSTINO /11:14 AM /1:27 PM
--- NOTE | 2016-08-27 14:45 | RADRPT ---
EXAM DATE/TIME: 08/27/2016 10:54 [facility] COMPARISON: ELBOW RIGHT COMPLETE (4 VWS), August 26, 2016, 7:02. INDICATIONS : ORIF right olecranon fracture. MEDICAL HISTORY : None. SURGICAL HISTORY : None. ENCOUNTER: Subsequent ACUITY: 2 days PAIN SCORE: Non-responsive. LOCATION: Right elbow. FINDINGS: Multiple coned down views of the right elbow were obtained and demonstrate placement of screw plate f ixation device transfixing the olecranon fracture which is in anatomic alignment. The radial head rem ains intact. There is mild soft tissue prominence. CONCLUSION: Status post open reduction internal fixation. Vinnie Garcia MD on August 27, 2016 at 14:42 Board Certified Radiologist. This report was verified electronically.
[2016-08-27 15:02] VITALS: O2SAT 96
[2016-08-27] MEDS ORDERED: ceFAZolin 2 GM PREMIX 50 ML IV SCH (18:00)
== END 2016-08-27 16:15 | disposition home or self-care (01) | DRG 512 ==
LOC: NEPC 06:18 → NEDA 09:10 → NEDH 13:55 → N05A 19:02
PROVIDERS: ADMIT Family Medicine; ATTEND Family Medicine
PROC: 0PSK04Z Reposition Right Ulna with Internal Fixation Device, Open Approach (ICD-10-PCS; principal; 2016-08-27 09:58)
DX: S52.021A Displaced fracture of olecranon process without intraarticular extension of right ulna, initial encounter for closed fracture (principal); F32.9 Major depressive disorder, single episode, unspecified; E03.9 Hypothyroidism, unspecified; W01.0XXA Fall on same level from slipping, tripping and stumbling without subsequent striking against object, initial encounter; Y92.008 Other place in unspecified non-institutional (private) residence as the place of occurrence of the external cause; M06.9 Rheumatoid arthritis, unspecified; E78.5 Hyperlipidemia, unspecified; Z87.891 Personal history of nicotine dependence; F10.10 Alcohol abuse, uncomplicated
CPT/HCPCS: 29105; 73070; 73080; 76000; 80048; 82948; 85025; 94150; C1713; J0690; J1100; J1580; J2175; J2250; J2270; J2370; J2405; J2710; J3010; J3370; J7050; J7120

== ENCOUNTER → 2016-12-24 | Day surgery (SDC) | payer MEDICARE, OTHER ==
[~2016-12-24] VITALS: Ht 188 cm; Wt 66.9 kg
[~2016-12-24] MED LIST changes: +ACETAMINOPHEN 500 MG CPLT ONE; +ACETAMINOPHEN 500 MG CPLT PO PRN; +ATOR10TA15 PO; -ATOR20TA42 PO; +ATROPINE SULFATE 1% OPHT SOLN 2 ML BTL ONE; +BALANCED SALT SOLN OPHT IRRIG 15 ML BTL ONE; +BIOT10TA PO; +BIOT1TAB2 PO; +BUPIVACAINE HCL PF 0.75% 10 ML VIAL ONE; +CHLORHEXIDINE GLUCONATE 2 % 1 PACK (2 CLOTHS) TOPICAL PRN; +DEXAMETHASONE SOD PHOS 4 MG/ML VIAL ONE; +DICL1CAP4 PO; +DO NOT ADM ANY ANTICOAGULANT DRUGS PRN; +EPINEPHrine HCL (1:1000) 1 MG/ML VIAL ONE; +INSULIN HUMAN REGULAR 1,000 UNITS/10 ML VIAL SQ PRN; +LACTATED RINGER'S 1000 ML INJ 1,000 ML IV ONE; +LACTATED RINGER'S 1000 ML IV PRN; +LIDOCAINE HCL 2% 50 ML VIAL ONE; +METOPROLOL TARTRATE 25 MG TAB PO PRN; +MIDAZOLAM HCL 2 MG/2 ML VIAL ONE; +NEOM0.1S4 RIGHT EYE; +ONDANSETRON HCL 4 MG/2 ML VIAL IM PRN; +ONDANSETRON HCL 4 MG/2 ML VIAL IV PUSH ONE; +ONDANSETRON HCL 4 MG/2 ML VIAL IV PUSH PRN; -PAXI10TA PO; +PAXI10TA2 PO; +POVIDONE IODINE 5% (ANTISEPSIS KIT) 4 APPLICATIONS EACH NARE PRN; +PRED1 PO; +PROPOFOL 200 MG/20 ML AMP IV ONE; +SODIUM CHLORID 0.9% 500 ML IV PRN; +SODIUM CHLORIDE 0.9% 20 ML VIAL ONE; +SPIR100T PO; +STERILE WATER FOR INJECTION 20 ML VIAL ONE; +TOBRAMYCIN/DEXAMETHASONE OPTH OINT 3.5 GM TUBE ONE; +TRIAMCINOLONE ACETONIDE 40 MG/ML VIAL ONE; +ceFAZolin INJ 1,000 MG VIAL ONE; +fentaNYL CITRATE 250 MCG/5 ML AMP ONE; +oxyCODONE/ACETAMINOPHEN 5 MG/325 MG TAB PO PRN
[2016-12-24] MEDS: ATROPINE SULFATE 1% OPHT SOLN 5 ML BTL RIGHT EYE SCH ×4 (08:00→09:43)
[2016-12-24] MEDS: CYCLOPENTOLATE HCL 1% OPHT SOLN 2 ML BTL RIGHT EYE SCH ×4 (08:55→09:43)
[2016-12-24] MEDS: TROPICAMIDE 1% OPHT SOLN 15 ML BTL RIGHT EYE SCH ×4 (08:55→09:43)
[2016-12-24] MEDS: PHENYLEPHRINE HCL 2.5% OPTH SOLN 2 ML BTL RIGHT EYE SCH ×4 (08:55→09:43)
[2016-12-24 08:57] LABS: AUTOMATED NEUTROPHIL # 3.7 TH/MM3 (1.8-7.7); BASOPHIL # 0.1 TH/MM3 (0-0.2); BASOPHIL % 1.3 % (0.0-2.0); EOSINOPHIL # 0.2 TH/MM3 (0-0.4); EOSINOPHIL % 4.2 % (0.0-4.0); HEMATOCRIT 35.9 % (35.0-46.0); HEMO FLAGS DIFF FINAL; MEAN CELL VOLUME 89.9 FL (80.0-100.0); MEAN CORPUSCULAR HEMOGLOBIN 30.1 PG (27.0-34.0); MEAN CORPUSCULAR HGB CONC 33.4 % (32.0-36.0); MONO % 8.3 % (0.0-8.0); NEUT % 68.2 % (16.0-70.0); PLATELET COUNT 401 TH/MM3 (150-450); RED BLOOD COUNT 3.99 MIL/MM3 (4.00-5.30); RED CELL DISTRIBUTION WIDTH 14.7 % (11.6-17.2); WHITE BLOOD COUNT 5.4 TH/MM3 (4.0-11.0)
[2016-12-24 12:57] VITALS: BP 132/76; PULSE 82; RESP 16; TEMP 97.4; O2SAT 99
--- NOTE | 2016-12-26 13:59 | MP ---
cc: MAGNO SMITH M.D. DATE OF SURGERY: 12/24/2016. PREOPERATIVE DIAGNOSIS: Visually significant epiretinal membrane with vitreomacular traction and macular pucker, right eye. POSTOPERATIVE DIAGNOSIS: Visually significant epiretinal membrane was vitreomacular traction and macular pucker, right eye. OPERATIVE PROCEDURE PERFORMED: Trans pars plana vitrectomy with membranectomy gas fluid exchange right eye. SURGEON: Magno Smith MD. ANESTHESIA: General laryngeal mask anesthesia. INDICATIONS FOR THE PROCEDURE: Ms. Bullard is a 71-year-old woman who presented on 12/15/2016 with decreased vision in her right eye down to 20/200 for a distance and 20/400 at near. She was found to have an epiretinal membrane with vitreomacular traction and nearly macular hole right eye. Because of her visual difficulty, she wished to proceed electively with a vitrectomy and membrane stripping and gas / fluid exchange right eye to try and improve the anatomy in her visual functioning. The risks and benefits of surgery were discussed with the patient and informed consent was obtained. No guarantee was made as to visual outcome. DESCRIPTION OF THE PROCEDURE IN DETAIL: She was brought to [facility] operating room #1 and placed on the operating table. Appropriate anesthesia monitoring devices were applied and she was placed under general anesthesia using a laryngeal mask. The right eye was identified as the operative site and then prepped and draped in the usual sterile fashion. A lid speculum was placed. At this point an appropriate time-out was called with the surgical team agreeing to the surgical site and planned procedure. Using the microscope for visualization, the trocar cannulas for the 23-gauge vitrectomy system were placed 3.5 mm posterior to the limbus after first displacing the conjunctiva with a beveled entrance. The first one was placed at approximately the nine o'clock position and verified to be in the posterior chamber. An infusion cannula was affixed to it and it was turned on. Two additional trocar cannulas were placed in a similar fashion at ten and two o'clock. A small amount of Kenalog was injected into the vitreous cavity through the cannula. Using the flat contact lens, a core vitrectomy was carried out with the light pipe and vitrectomy cutter. Using a Christofer membrane scraper, the membrane was lifted a bit elevated and then removed with aspiration with a soft tipped linear extrusion needle. The BIOM wide angle viewing system was used to remove the more peripheral vitreous after which the plugs were placed back in the cannulas and the fundus was inspected with the indirect ophthalmoscope and scleral depression. No retinal breaks were found. Next, an air-fluid exchange was performed under the BIOM for visualization using a soft tipped linear extrusion needle and light pipe. The air was then exchanged out for a 24% mixture of SF6. The plugs were placed back in the cannulas and they were removed one by one with tamponade of the site with cotton swab and diathermy to the overlying conjunctival wound leaving the eye formed and with good pressure and no visible air leaks. Atropine drops were placed on the cornea followed by subtenon injection of Ancef 125 mg in 0.5 cc and Decadron 2 milligrams in 0.5 cc. The lid speculum was removed and the patient was undraped. TobraDex ointment was placed on the cornea and then the right eye was patched and shielded. 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 When awake and alert, she will be asked to assume a face down position. MD MARTINA Akins/SHAE /11:32 AM /1:45 PM
== END | disposition home or self-care (01) ==
LOC: HSDC 07:35
PROVIDERS: ATTEND Ophthalmology
DX: H35.371 Puckering of macula, right eye (principal); H43.821 Vitreomacular adhesion, right eye; I10 Essential (primary) hypertension; M06.9 Rheumatoid arthritis, unspecified; E07.9 Disorder of thyroid, unspecified; Z01.818 Encounter for other preprocedural examination
CPT/HCPCS: 00145; 67041; 85025; J0171; J0690; J1100; J2250; J2405; J3010; J3301; J7120

== ENCOUNTER → 2017-08-06 | Outpatient (CLI) | payer MEDICARE, OTHER ==
[~2017-08-06] MED LIST changes: -ACETAMINOPHEN 500 MG CPLT ONE; -ACETAMINOPHEN 500 MG CPLT PO PRN; -ATROPINE SULFATE 1% OPHT SOLN 2 ML BTL ONE; -BALANCED SALT SOLN OPHT IRRIG 15 ML BTL ONE; -BIOT10TA PO; -BUPIVACAINE HCL PF 0.75% 10 ML VIAL ONE; -CHLORHEXIDINE GLUCONATE 2 % 1 PACK (2 CLOTHS) TOPICAL PRN; -DEXAMETHASONE SOD PHOS 4 MG/ML VIAL ONE; -DO NOT ADM ANY ANTICOAGULANT DRUGS PRN; -EPINEPHrine HCL (1:1000) 1 MG/ML VIAL ONE; -INSULIN HUMAN REGULAR 1,000 UNITS/10 ML VIAL SQ PRN; -LACTATED RINGER'S 1000 ML INJ 1,000 ML IV ONE; -LACTATED RINGER'S 1000 ML IV PRN; -LIDOCAINE HCL 2% 50 ML VIAL ONE; -METOPROLOL TARTRATE 25 MG TAB PO PRN; -MIDAZOLAM HCL 2 MG/2 ML VIAL ONE; -ONDANSETRON HCL 4 MG/2 ML VIAL IM PRN; -ONDANSETRON HCL 4 MG/2 ML VIAL IV PUSH ONE; -ONDANSETRON HCL 4 MG/2 ML VIAL IV PUSH PRN; -PAXI10TA2 PO; +PAXI10TA8 PO; -POVIDONE IODINE 5% (ANTISEPSIS KIT) 4 APPLICATIONS EACH NARE PRN; -PROPOFOL 200 MG/20 ML AMP IV ONE; -SODIUM CHLORID 0.9% 500 ML IV PRN; -SODIUM CHLORIDE 0.9% 20 ML VIAL ONE; -STERILE WATER FOR INJECTION 20 ML VIAL ONE; -TOBRAMYCIN/DEXAMETHASONE OPTH OINT 3.5 GM TUBE ONE; -TRIAMCINOLONE ACETONIDE 40 MG/ML VIAL ONE; -ceFAZolin INJ 1,000 MG VIAL ONE; -fentaNYL CITRATE 250 MCG/5 ML AMP ONE; -oxyCODONE/ACETAMINOPHEN 5 MG/325 MG TAB PO PRN
[2017-08-06 09:07] LABS: AUTOMATED NEUTROPHIL # 6.1 TH/MM3 (1.8-7.7); BASOPHIL # 0.1 TH/MM3 (0-0.2); BASOPHIL % 0.6 % (0.0-2.0); EOSINOPHIL # 0.1 TH/MM3 (0-0.4); EOSINOPHIL % 1.4 % (0.0-4.0); HEMATOCRIT 36.6 % (35.0-46.0); HEMOGLOBIN 12.3 GM/DL (11.6-15.3); LYMPH % 22.7 % (9.0-44.0); MEAN CELL VOLUME 87.4 FL (80.0-100.0); MEAN CORPUSCULAR HEMOGLOBIN 29.3 PG (27.0-34.0); MEAN CORPUSCULAR HGB CONC 33.5 % (32.0-36.0); MEAN PLATELET VOLUME 6.6 FL (7.0-11.0); MONO % 6.7 % (0.0-8.0); MONOCYTE # 0.6 TH/MM3 (0-0.9); NEUT % 68.6 % (16.0-70.0); PLATELET COUNT 524 TH/MM3 (150-450); RED BLOOD COUNT 4.19 MIL/MM3 (4.00-5.30); RED CELL DISTRIBUTION WIDTH 15.9 % (11.6-17.2); WHITE BLOOD COUNT 8.9 TH/MM3 (4.0-11.0)
[2017-08-06 09:45] LABS: BICARBONATE 28.8 MEQ/L (21.0-32.0); CALCIUM 9.1 MG/DL (8.5-10.1); CREATININE 0.62 MG/DL (0.50-1.00)
--- NOTE | 2017-08-06 16:06 | EKG ---
Date Performed: 08/06/2017 Time Performed: 08:54:26 PTAGE: 71 years EKG: Sinus rhythm Rightward axis Nonspecific ST abnormality Borderline ECG PREVIOUS TRACING : 01/28/2016 13.30 No significant change from previous tracing noted. DOCTOR: Eddie Lenz Interpretating Date/Time 08/06/2017 16:05:47
== END ==
LOC: CLAB 08:31
PROVIDERS: ATTEND Orthopaedic Surgery Orthopaedic Surgery of the Spine
DX: Z01.810 Encounter for preprocedural cardiovascular examination (principal); S83.231A Complex tear of medial meniscus, current injury, right knee, initial encounter; S83.271A Complex tear of lateral meniscus, current injury, right knee, initial encounter; X58.XXXA Exposure to other specified factors, initial encounter
CPT/HCPCS: 36415; 80048; 85025; 93005